=== PATIENT | female | born 1960 | race Caucasian/White ===

== ENCOUNTER 2016-11-11 13:06 | Emergency (ER) | payer SELFPAY | END 2016-11-11 13:08 | disposition left against medical advice (07) | LOC: UCEAST 13:06 | DX: Z76.0 Encounter for issue of repeat prescription (principal); Z53.21 Procedure and treatment not carried out due to patient leaving prior to being seen by health care provider ==

== ENCOUNTER 2018-08-28 07:46 | Emergency (ER) | payer BC ==
--- OUTSIDE RECORDS SUMMARY | 2018-08-28 07:55 | XMS REPORT | Continuity of Care Document ---
:1960 External Reference #:[id number] Author Name Oskar Jara, OD Address [address] [place] [address] Care Team Providers Name Role Phone Denisa Macedo MD Primary Care Physician Unavailable Payers Date Identification Numbers Payment Provider Subscriber Policy Number: [id number] BC/BS [place] [employer] Chester Solorio PayID: [id number] [address] [address] [place] [address] Problems Active Problems Provider Date Regular astigmatism Oskar Marie O.D. Onset: 05/28/2015 Hypermetropia Oskar Marie O.D. Onset: 05/28/2015 Other keratoconjunctivitis, right eye Oskar Marie O.D. Onset: 04/24/2015 Tear film insufficiency Oskar Marie O.D. Onset: 04/17/2015 Superficial punctate keratitis Oskar Marie O.D. Onset: 04/10/2015 Family History Date Family Member(s) Observation Comments General Age-Related Macular Degeneration grandmother Father Glasses Father due to Cancer () Father Cancer Mother Glasses Mother Arthritis Mother Alzheimer's Disease Social History Type Date Description Comments Sex Unknown ETOH Use Occasionally consumes alcohol Tobacco Use Start: Unknown Patient has never smoked Smoking Status Reviewed: 08/24/18 Patient has never smoked Allergies, Adverse Reactions, Alerts Active Allergies Reaction Severity Comments Date Codeine 04/10/2015 Medications Active Medications SIG Qnty Indications Ordering Provider Date Levothyroxine Sodium Unknown 175mcg Tablets History Medications Tobramycin-Dexamethasone 1 drop four 10ml H16.141 Oskar 04/10/2015 - 0.3-0.1% times a day Freddy Marie 05/28/2015 Suspension right eye for one week Ondansetron Unknown - 4mg Tablets Dispers 08/24/2018 Proair HFA Unknown - 108(90Base) mcg/Act Aerosol 08/24/2018 Vital Signs Date Vital Result Comment 08/24/2018 11:50am Intraocular Pressure Right Eye 16 mmHg Intraocular Pressure Left Eye 16 mmHg 01/26/2017 8:09am Intraocular Pressure Right Eye 17 mmHg Intraocular Pressure Left Eye 17 mmHg 05/28/2015 10:39am Intraocular Pressure Right Eye 16 mmHg Intraocular Pressure Left Eye 16 mmHg Procedures Date Code Description Status 08/24/2018 20942 Refraction Completed 08/24/2018 02372 Eye Exam Est Comprehensive Completed 01/26/2017 70193 Refraction Completed 01/26/2017 19967 Eye Exam Est Intermediate Completed 05/28/2015 24697 Refraction Completed 05/28/2015 37453 Eye Exam Est Intermediate Completed 04/10/2015 70092 Eye Exam New Intermediate Completed Encounters Type Date Location Provider Dx Diagnosis Office Visit 05/01/2015 Main Office Oskar Marie, H16.291 Other 3:15p O.D. keratoconjunctiviti s, right eye Office Visit 04/24/2015 Main Office Oskar Marie, H16.291 Other 10:45a O.D. keratoconjunctiviti s, right eye H04.123 Dry eye syndrome of bilateral lacrimal glands Office Visit 04/17/2015 3:15p Main Office Oskar Marie, H04.123 Dry eye syndrome O.D. of bilateral lacrimal glands Plan of Treatment 08/24/2018 - Oskar Jara, ODH25.13 Age-related nuclear cataract, hpsqzwfzwX45.123 Dry eye syndrome of bilateral lacrimal tncisjB53.4 PresbyopiaFollow up:yearly full, sooner PRN
[2018-08-28 08:05] VITALS: BP 135/55
--- NOTE | 2018-08-28 08:25 | ED ---
Abdominal Pain/Female - HPI Summary HPI Summary: 58 yr old female with the complaint of abdominal pain, and nausea, vomiting, and diarrhea. The patient has had symptoms for one month. She has had intermittent watery diarrhea. She has had nausea and bile taste in her mouth. She has had abdominal distention and bloating. She has had pain in her epigastric area and also across the low abdomen. 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 She still has her ovaries. Her pain is mild at this point. No fever or chills. - History of Current Complaint Chief Complaint: UCGI Stated Complaint: NAUSEA,DIARRHEA x 30 DAYS Time Seen by Provider: 08/28/18 08:11 Hx Last Menstrual Period: hyster Pain Intensity: 2 Allergies/Adverse Reactions: Allergies Allergy/AdvReac Type Severity Reaction Status Date / Time codeine AdvReac Vomiting Verified 08/28/18 08:06 PMH/Surg Hx/FS Hx/Imm Hx Endocrine/Hematology History: Reports: Hx Thyroid Disease - hypo Denies: Hx Anticoagulant Therapy, Hx Diabetes Cardiovascular History: Denies: Hx Hypertension, Hx Pacemaker/ICD Respiratory History: Reports: Hx Asthma Denies: Hx Chronic Obstructive Pulmonary Disease (COPD) GI History: Denies: Hx Ulcer History: Denies: Hx Renal Disease Sensory History: Denies: Hx Hearing Aid Neurological History: Denies: Hx Dementia, Hx Seizures Psychiatric History: Denies: Hx Panic Disorder, Hx Substance Abuse - Surgical History Surgery Procedure, Year, and Place: left ankle x 2. hysterectomy. tonsilectomy Infectious Disease History: No Infectious Disease History: Denies: Hx Clostridium Difficile, Hx Hepatitis, Hx Human Immunodeficiency Virus (HIV), Hx of Known/Suspected MRSA, Hx Shingles, Hx Tuberculosis, History Other Infectious Disease, Traveled Outside the [place] in Last 30 Days - Family History Known Family History: Positive: None - Social History Occupation: Employed Full-time Alcohol Use: Occasionally Substance Use Type: Reports: None Hx Tobacco Use: No Smoking Status (MU): Former Smoker Type: Cigarettes Amount Used/How Often: 1/2-1 ppd Length of Time of Smoking/Using Tobacco: approx 20 yrs Have You Smoked in the Last Year: No Review of Systems Constitutional: Negative Positive: Abdominal Pain, Vomiting, Diarrhea, Nausea All Other Systems Reviewed And Are Negative: Yes Physical Exam Triage Information Reviewed: Yes Vital Signs On Initial Exam: Initial Vitals Temp Pulse Resp BP Pulse Ox 98.4 F 79 16 135/55 98 08/28/18 07:57 08/28/18 07:57 08/28/18 07:57 08/28/18 07:57 08/28/18 07:57 Vital Signs Reviewed: Yes Appearance: Positive: Well-Appearing, No Pain Distress Skin: Positive: Warm, Skin Color Reflects Adequate Perfusion Head/Face: Positive: Normal Head/Face Inspection Eyes: Positive: EOMI, ISHAN ENT: Positive: Pharynx normal Neck: Positive: Nontender Respiratory/Lung Sounds: Positive: Clear to Auscultation, Breath Sounds Present Cardiovascular: Positive: RRR. Negative: Murmur Abdomen Description: Negative: Distended Musculoskeletal: Positive: Strength/ROM Intact Neurological: Positive: Sensory/Motor Intact, Alert, Oriented to Person Place, Time, CN Intact II-III, Normal Gait, Speech Normal Psychiatric: Positive: Normal Diagnostics - Vital Signs Vital Signs Temp Pulse Resp BP Pulse Ox 08/28/18 07:57 98.4 F 79 16 135/55 98 - Laboratory Lab Statement: Any lab studies that have been ordered have been reviewed, and results considered in the medical decision making process. Abdominal Pain Fem Course/Dx - Course Course Of Treatment: 58 yr old with upper and lower abodminal pain and NVD for a month. TO the ER for further work up , labs. - Diagnoses Provider Diagnoses: Epigastric abdominal pain, Nausea vomiting and diarrhea Discharge - Sign-Out/Discharge Documenting (check all that apply): Patient Departure All imaging exams completed and their final reports reviewed: No Studies - Discharge Plan Condition: Good Disposition: HOME-RECOMMEND TO ED Patient Education Materials: Abdominal Pain (ED) Referrals: Denisa Faulkner RN [Primary Care Provider] - Additional Instructions: You need to go to [facility] for further evaluation after leaving here. - Billing Disposition and Condition Condition: GOOD Disposition: Home-Recommend to ED
== END 2018-08-28 08:29 | disposition home health service (06) ==
LOC: UCCORT 07:46
DX: R10.13 Epigastric pain (principal); R11.2 Nausea with vomiting, unspecified; R19.7 Diarrhea, unspecified; Z88.5 Allergy status to narcotic agent; Z87.891 Personal history of nicotine dependence
CPT/HCPCS: 99212; G0463